=== PATIENT | female | born 1985 | race Caucasian/White ===

== ENCOUNTER 2016-10-10 21:06 | Emergency (ER) | payer OTHER ==
[~2016-10-10] VITALS: Ht 177.8 cm; Wt 145.7 kg
[~2016-10-10 21:06] MED LIST: NIFE1TAB55 PO; [UNRECOGNIZED DRUG - CODE] PO
[2016-10-10 21:10] VITALS: TEMP 36.9; Ht 177.8 cm; Wt 145.7 kg
[2016-10-10] MEDS ORDERED: LABE1TAB28 PO (21:43)
[2016-10-10] MEDS ORDERED: TRAM-10 PO (21:49)
[2016-10-10] MEDS ORDERED: PENI500T2 PO (21:49)
--- NOTE | 2016-10-10 21:50 | EMERGENCY ROOM VISIT NOTE ---
ED Visit Note First contact with patient: 21:16 CHIEF COMPLAINT: Left upper dental pain 2 days HISTORY OF PRESENT ILLNESS: Patient is a 31-year-old white female who presents to the emergency department for evaluation of left upper dental pain. She states the pain is coming from a fractured and decayed left upper rear molar. She has tried Tylenol, Aleve, Orajel and a teabag without relief. She notes bloody drainage from the tooth. Her pain radiates to her ear. She denies any facial swelling. She made an appointment with [facility] for 10/20. REVIEW OF SYSTEMS:Review of systems as per HPI. All other systems reviewed were negative. At least 6 systems reviewed. PMH: Electronic medical records are reviewed and summarized as above/below. See Problem List. Patient has a history of hypertension. She is on labetalol twice a day, but because she is without insurance she cannot afford to see her PCP or fill her prescription for nifedipine. SOCIAL HISTORY: Patient lives at home with her family. PHYSICAL EXAM: Vital Signs: Reviewed Nurse's notes. Blood pressure noted to be 215/135 in the emergency department. CONSTITUTIONAL: Patient is a well-appearing overweight 31-year-old white female who is awake and alert and in no acute distress. EARS: Tympanic membranes intact, not inflamed, have normal contour. External canals clear. MOUTH: Overall the patient has fair dentition. The left upper rear molar in question has an obvious cavity, and is tender to percussion. There is slight swelling along the gumline although no focal abscess. Mucous membranes moist, no lesions, tongue and gums appear normal. THROAT: No pharyngeal injection, exudates, or tonsillar hypertrophy. Airway is patent. No trismus noted. FACE: No facial swelling is appreciated. No cellulitic changes. NECK: No lymphadenopathy. ED course: The patient was seen and evaluated as above. The patient is flagged on our treatment plan list as No Narcotics under her maiden name, Ana Paula Zacariasaffer. Patient was reviewed in the [facility] Health Prescription Drug Monitoring Program, and there were no red flags noted. No narcotic prescriptions were noted under either her madien or current last name for almost 3 years. She has not been seen recently at our facility. She was given a [place] pack, and a prescription for tramadol. She will be placed on pen VK. With regards to her hypertension, this is a chronic issue for her due to insurance issues and noncompliance. She is not demonstrating any signs of hypertension of the emergency. She was encouraged to take her medications as prescribed and follow-up with her primary care provider. She is due for her evening dose of labetalol when she gets home. She was encouraged to follow-up with the dentist for definitive care and management of the tooth. She does not have any evidence for facial cellulitis or Riley's angina at this time. Problem List Medical Problems: (1) Hypertension Nos Status: Chronic (2) Malignant hypertension Status: Resolved (3) Near syncope Status: Resolved (4) Near syncope Status: Resolved (5) UTI (urinary tract infection) Status: Resolved (6) UTI (urinary tract infection) Status: Resolved Surgical Problems: (1) Previous section Status: Resolved (2) S/P cholecystectomy Status: Resolved Current/Historical Medications Scheduled Labetalol (Normodyne), 200 MG PO BID Nifedipine (Nifedipine Er), 60 MG PO DAILY Penicillin V Potassium (Veetids), 500 MG PO QID Scheduled PRN Tramadol (Ultram), 1-2 TAB PO Q4H PRN for Pain Allergies Coded Allergies: Aspirin (Unverified Adverse Reaction, Severe, KIDNEY FAILURE, 10/10/16) Vital Signs Date Time Temp Pulse Resp B/P Pulse Ox O2 Delivery O2 Flow Rate FiO2 10/10/16 22:45 71 20 203/151 98 10/10/16 21:10 36.9 85 16 215/135 98 Room Air Medications Administered Medications (Trade) Dose Ordered Sig/Castillo Route Start Time Stop Time Status Last Admin Dose Admin Penicillin V Potassium (Pen-Vk 500MG Home Pack) 1 homepack UD ONCE PO 10/10/16 22:00 10/10/16 22:01 DC 10/10/16 22:43 1 HOMEPACK Acetaminophen/ Hydrocodone Bitart ([place] 5/325mg Home Pack) 1 homepack UD ONCE PO 10/10/16 22:00 10/10/16 22:01 DC 10/10/16 22:42 1 HOMEPACK Departure Information Impression Primary Impression: Pain, dental Prescriptions Penicillin V Potassium (VEETIDS) 500 Mg Tab 500 MG PO QID, #40 TAB Prov: Elaina Monique PA 10/10/16 Tramadol (Ultram) 50 Mg Tab 1-2 TAB PO Q4H Y for Pain, #20 TAB For Initial Treatment Prov: Elaina Monique PA 10/10/16 Referrals No Doctor, Assigned (PCP) Patient Instructions [facility] Additional Instructions Penicillin 500mg: Take one pill four times daily for 10 days for your dental infection. All antibiotics can cause diarrhea. If this occurs and you feel worse or it does not resolve in 1-2 days follow up with your doctor or return to the Emergency Department as this could be signs of serious underlying problems. Any medication can cause an allergic reaction, stop the pills immediately and return to the ER for rash, hives, breathing difficulties, or swelling. Ibuprofen(Motrin, Advil) may be used for fever or pain. Use 600mg every six hours as needed. Take with food. Avoid using more than 2400mg in a 24 hour period. Do not use 2400mg per day for more than three consecutive days without physician direction. Prolonged inappropriate use can lead to stomach upset or ulcers. (AND/OR) Acetaminophen(Tylenol) may be used for fever or pain. Use 1000mg every six hours as needed. Avoid using more than 4000mg in a 24 hour period. Hydrocodone/Acetaminophen ([place]) 5/325 mg: Take 1-2 pills every four hours for breakthrough pain. Avoid alcohol, operating machinery or dangerous equipment, working on ladders or roofs, DRIVING, or situations where being under the influence may be dangerous. It is recommended to use an lxyq-tas-zhgjeqn stool softener such as Colace, 100mg twice daily while taking this medication to avoid constipation. Tramadol (Ultram) 50mg: Take 1-2 pills every four hours for breakthrough pain. Avoid alcohol, operating machinery or dangerous equipment, working on ladders or roofs, DRIVING, or situations where being under the influence may be dangerous. It is recommended to use an toqw-unb-iqukkwo stool softener such as Colace, 100mg twice daily while taking this medication to avoid constipation. Saltwater gargles after meals and before bedtime. Soft foods. Orajel/Anbesol/clove oil as needed for discomfort. Followup with your dentist as you have scheduled. You may also follow up with your primary care physician for pain/care management until you can be seen by your dentist.
[2016-10-10] MEDS ORDERED: NORCO 5/325MG HOME PACK PO ONE (22:00)
[2016-10-10] MEDS ORDERED: PENICILLIN HOME PACK 500MG (4 DOSES)BTL PO ONE (22:00)
[2016-10-10 22:45] VITALS: BP 203/151; PULSE 71; O2SAT 98
== END 2016-10-10 22:45 | disposition home or self-care (01) ==
LOC: C.EDB 21:07 → C.EDD 22:45
DX: K08.89 Other specified disorders of teeth and supporting structures (principal); I10 Essential (primary) hypertension; Z79.899 Other long term (current) drug therapy; Z88.6 Allergy status to analgesic agent